=== PATIENT | female | born 1990 | race Caucasian/White ===

== ENCOUNTER 2022-12-12 12:57 | Emergency (ER) | payer OTHER ==
[~2022-12-12] VITALS: Ht 167.6 cm; Wt 64.5 kg
[2022-12-12 13:14] VITALS: BP 124/71
[2022-12-12] MEDS ORDERED: IBUPROFEN 800 MG TAB PO ONE (13:30)
--- NOTE | 2022-12-12 13:44 | NUR ---
Mckenna craven in [facility] - 12/12/22 at 1347 by [facility] PT CALLED IN [place], NO ANSWER
--- NOTE | 2022-12-12 15:27 | NUR ---
Patient discharged with v/s stable. Written and verbal after care instructions ABOUT [facility] given and explained. Patient verbalized understanding. Ambulatory with steady gait. All questions addressed prior to discharge. Advised to follow up with PMD.
== END 2022-12-12 15:26 | disposition home or self-care (01) ==
LOC: MED 12:57
DX: M19.071 Primary osteoarthritis, right ankle and foot (principal)
CPT/HCPCS: 73610; 73630; 81025; 99284